=== PATIENT | male | born 1955 | race Hispanic/Latino ===

== ENCOUNTER 2023-02-08 10:56 | Emergency (ER) | payer SELFPAY ==
[2023-02-08 11:37] LABS: Absolute Lymphocytes (CBC) 1.2 K/uL (0.7-4.9); Hematocrit 43.7 % (39.6-49.0); Lymphocytes % 15.1 % (15.3-44.8); MCV 82.5 fL (80-100); MPV 9.2 fL (7.6-11.3); Platelets 148 thou/uL (152-406)
[2023-02-08 11:59] LABS: Albumin 3.8 g/dL (3.4-5.0); Bilirubin Direct 0.1 mg/dL (0-0.2); Bilirubin Indirect, Calculated 0.4 mg/dL (0.2-0.8); Bilirubin Total 0.5 mg/dL (0.2-1.0); Magnesium 2.2 mg/dL (1.6-2.4); Potassium 3.1 mEq/L (3.5-5.1); Protein, Total 7.5 g/dL (6.4-8.2); Troponin High Sensitivity 8.7 pg/mL (<58.9)
--- NOTE | 2023-02-08 12:38 | RAD REPORT ---
EXAM DESCRIPTION: CT - Angio Aorta For Dissection - 02/08/2023 12:24 pm CLINICAL HISTORY: DISSECTION COMPARISON: No comparisons TECHNIQUE: Thin axial CT images of the chest, abdomen, and pelvis were obtained during administratio n of 100mL Isovue 370 IV contrast. Sagittal and coronal reconstructions as well as maximal intensity projection reconstruction were generated and reviewed per an aortic angiography protocol. All CT scans are performed using dose optimization technique as appropriate and may include automated exposure control or mA/KV adjustment according to patient size. FINDINGS: Aorta is normal in diameter with no dissection or other acute aortic findings. Reconstruct ion images show no significant findings. Pulmonary arteries are normal as well. No mass or infiltrate in the lung parenchyma. No pleural thickening, pleural effusion or pneumothorax . No abnormal mediastinal or hilar mass or lymphadenopathy seen. No chest wall mass or abnormal axillar y lymphadenopathy. Celiac, SMA and renal arteries show no suspicious findings. Diffuse hepatic parenchymal hypoattenuati on suggesting steatosis. Small bilateral inguinal hernias containing fat. Appendix is unremarkable. G allbladder is contracted limiting evaluation. Solid abdominal viscera and bowel show no other signifi cant findings. No mass or abnormal lymphadenopathy. Small sclerotic lesions within the pelvic bones, largest measuring up to 1 cm, favored to represent s mall bone islands or other benign entities. IMPRESSION: No acute abnormalities on CT angiogram of the aorta. No other acute findings on chest, abdomen and pelvis examination. Incidental findings as above.
[2023-02-08] MEDS ORDERED: NA CHLORIDE 0.9% 1,000 ML ONE (12:43)
[2023-02-08] MEDS ORDERED: POTASSIUM 25 MEQ EFFERV TAB ONE (12:43)
--- NOTE | 2023-02-08 13:27 | RAD REPORT ---
EXAM DESCRIPTION: Enrique Single View02/08/2023 1:01 pm CLINICAL HISTORY: Chest pain COMPARISON: none FINDINGS: The lungs appear clear of acute infiltrate. The heart is mildly enlarged IMPRESSION: No acute abnormalities displayed
--- NOTE | 2023-02-08 14:15 | ER ---
Nurse's Notes [facility] Name: Carlton Zuniga Age: 67 yrs Sex: Male : 1955 Arrival Date: 02/08/2023 Time: 10:56 Bed 21 Private MD: Diagnosis: Chest pain, unspecified Presentation: 02/08 11:11 Chief complaint: Patient states: symptoms have been going on for 3 weeks, more frequent ko1 this past week, has headache. Coronavirus screen: At this time, the client does not indicate any symptoms associated with coronavirus-19. Ebola Screen: No symptoms or risks identified at this time. Initial Sepsis Screen: Does the patient meet any 2 criteria? No. Patient's initial sepsis screen is negative. Does the patient have a suspected source of infection? No. Patient's initial sepsis screen is negative. Risk Assessment: Do you want to hurt yourself or someone else? Patient reports no desire to harm self or others. Onset of symptoms is unknown. 11:11 Method Of Arrival: Ambulatory ko1 11:11 Acuity: ROXIE 3 ko1 Triage Assessment: 11:14 Headache History: The patient has had previous headaches and this one is similar to ko1 previous episodes. General: Appears in no apparent distress. uncomfortable, Behavior is calm, cooperative, appropriate for age. Pain: Pain Pain began 3 months ago Also complains of no other associated symptoms. Neuro: Reports headache frontal area. Historical: - Allergies: 11:14 No Known Allergies; ko1 - PMHx: 11:14 Hypertensive disorder; ko1 - Immunization history:: Adult Immunizations up to date. - Social history:: Smoking status: Patient denies any tobacco usage or history of. Screenin:33 [facility] ED Fall Risk Assessment (Adult) History of falling in the last 3 months, cp4 including since admission No falls in past 3 months (0 pts) Confusion or Disorientation No (0 pts) Intoxicated or Sedated No (0 pts) Impaired Gait No (0 pts) Mobility Assist Device Used No (0 pt) Altered Elimination No (0 pt) Score/Fall Risk Level 0 - 2 = Low Risk Oriented to surroundings, Maintained a safe environment, Educated pt \T\ family on fall prevention, incl call for assistance when getting out of bed, Hourly rounding (assess needs \T\ fall precautionary measures) done. Abuse screen: Denies threats or abuse. Nutritional screening: No deficits noted. Tuberculosis screening: No symptoms or risk factors identified. Assessment: 13:29 Reassessment: Patient and/or family updated on plan of care and expected duration. Pain ll1 level reassessed. 14:33 Pain: Denies pain. cp4 Vital Signs: 11:11 BP 152 / 79; Pulse 57; Resp 18; Temp 97.6; Pulse Ox 99% on R/A; ko1 14:23 BP 173 / 96; Pulse 58; bc6 14:32 BP 149 / 85; Pulse 54; Resp 16; Pulse Ox 100% ; cp4 ED Course: 10:59 Patient arrived in ED. im 11:02 Pete Mcneal MD is Attending Physician. jessica 11:02 Frieda Smyth PA-C is PHCP. sb4 11:14 Triage completed. ko1 11:14 Arm band placed on right wrist. Patient placed in waiting room, Patient notified of ko1 wait time. 11:30 CBC with Diff Sent. bc6 11:31 D-Dimer Sent. bc6 11:31 Magnesium Sent. bc6 11:31 NT PRO-BNP Sent. bc6 11:31 PT-INR Sent. bc6 11:31 Troponin HS Sent. bc6 11:31 Inserted saline lock: 22 gauge in left hand, using aseptic technique. Blood collected. bc6 12:25 CT Aorta for Dissection In Process Unspecified. EDMS 12:30 Note: 22 diff. IV placed in right AC. eh4 13:03 XRAY Chest (1 view) In Process Unspecified. EDMS 14:14 Usman Castro MD is Referral Physician. sb4 14:21 Willow Montes De Oca is Primary Nurse. cp4 14:33 Placed in gown. Bed in low position. Call light in reach. Provided Education on: chest cp4 pain. 14:33 No provider procedures requiring assistance completed. intact, bleeding controlled, No cp4 redness/swelling at site. Pressure dressing applied. Administered Medications: 13:28 Drug: NS 0.9% IV 1000 ml IV at 1 bolus Per protocol; 1000 mL bolus Route: IV; Rate: 1 jl7 bolus; Site: left hand; 13:28 Drug: Potassium PO Effervescent Tablet 50 mEq PO once; dissolve in 4 ounces of water or jl7 juice Route: PO; Medication: 14:33 VIS not applicable for this client. cp4 Outcome: 14:14 Discharge ordered by . sb4 14:33 Discharged to home ambulatory, cp4 14:33 Condition: stable 14:33 Discharge instructions given to patient, Instructed on discharge instructions, follow up and referral plans. Demonstrated understanding of instructions, follow-up care, 14:35 Patient left the ED. cp4 Signatures: Dispatcher [employer] EDMS Pete Mcneal MD MD cha Leal, Jahala RN RN jl7 Mateus Beatty, RN RN ll1 Natividad Georges 4 Guerline Sullivan RN RN Frieda Peters, PA-C PA-C sb4 Louise Caballero 6 Nani Pryor Christina cp4 Corrections: (The following items were deleted from the chart) 11:31 11:30 BASIC METABOLIC PANEL+C.LAB.BRZ drawn and sent. 6 [facility]
--- NOTE | 2023-02-08 14:15 | EDPHYS ---
Physician Documentation [facility] Name: Carlton Zuniga Age: 67 yrs Sex: Male : 1955 Arrival Date: 02/08/2023 Time: 10:56 Bed 21 Private MD: ED Physician Pete Mcneal HPI: 02/08 15:07 This 67 yrs old Male presents to ER via Ambulatory with complaints of sb4 Headache, Arm Pain - left, Breathing Difficulty, Numbness Of Face. 15:07 Patient presents with multiple complaints. He states that he has had intermittent chest sb4 pain, headaches, numbness/tingling of his face for a few months now, but has been worse over the past week. He does have a history of hypertension and reports compliance with his medication. He states that he called his PCP regarding the symptoms yesterday and was told to come to the ED for evaluation. Historical: - Allergies: 11:14 No Known Allergies; ko1 - PMHx: 11:14 Hypertensive disorder; ko1 - Immunization history:: Adult Immunizations up to date. - Social history:: Smoking status: Patient denies any tobacco usage or history of. ROS: 15:07 Constitutional: Negative for fever, chills, and weight loss, sb4 15:07 Cardiovascular: Positive for chest pain, 15:07 Neuro: Positive for headache, tingling, 15:07 All other systems are negative, Exam: 15:07 Constitutional: This is a well developed, well nourished patient who is awake, alert, sb4 and in no acute distress. Head/Face: Normocephalic, atraumatic. Eyes: Extra-ocular motions intact. Periorbital areas with no swelling, redness, or edema. ENT: Mucous membranes moist. Cardiovascular: Regular rate and rhythm with a normal S1 and S2. Respiratory: Lungs have equal breath sounds bilaterally, clear to auscultation and percussion. No rales, rhonchi or wheezes noted. No increased work of breathing, no retractions or nasal flaring. Abdomen/GI: Soft, non-tender, no distension. Skin: Warm, dry with normal turgor. Normal color with no rashes, no lesions, and no evidence of cellulitis. MS/ Extremity: Pulses equal, no cyanosis. Neurovascular intact. Full, normal range of motion. Neuro: Awake and alert, GCS 15, oriented to person, place, time, and situation. Motor strength 5/5 in all extremities. Sensory grossly intact. Vital Signs: 11:11 BP 152 / 79; Pulse 57; Resp 18; Temp 97.6; Pulse Ox 99% on R/A; ko1 14:23 BP 173 / 96; Pulse 58; bc6 14:32 BP 149 / 85; Pulse 54; Resp 16; Pulse Ox 100% ; cp4 MDM: 11:02 Patient medically screened. jessica 14:16 Scoring Tools HEART Score: History: ECG: Age: Risk Factors: 1 or 2 risk factors (1), sb4 Troponin: Total Score = 3. 15:07 Differential diagnosis: hypertensive headache, migraine, Acute FL, unstable angina, sb4 stable angina. Data reviewed: vital signs, nurses notes, lab test result(s), EKG, radiologic studies, and as a result, I will discharge patient. Consideration of Admission/Observation Escalation of care including admission/observation considered. Care significantly affected by the following chronic conditions: Hypertension. Counseling: I had a detailed discussion with the patient and/or guardian regarding the historical points, exam findings, and any diagnostic results supporting the discharge/admit diagnosis, the presence of at least one elevated blood pressure reading (>120/80) during this emergency department visit, lab results, radiology results, the need for outpatient follow up, a duty officer, to return to the emergency department if symptoms worsen or persist or if there are any questions or concerns that arise at home. 02/08 11:20 Order name: Basic Metabolic Panel; Complete Time: 12:00 sb4 02/08 11:20 Order name: CBC with Diff; Complete Time: 11:41 sb4 02/08 11:20 Order name: D-Dimer; Complete Time: 11:44 sb4 02/08 11:20 Order name: LFT's; Complete Time: 12:00 sb4 02/08 11:20 Order name: Magnesium; Complete Time: 12:00 sb4 02/08 11:20 Order name: NT PRO-BNP; Complete Time: 12:00 sb4 02/08 11:20 Order name: PT-INR; Complete Time: 11:44 sb4 02/08 11:20 Order name: Troponin HS; Complete Time: 12:00 sb4 02/08 13:14 Order name: Troponin High Sensitivity; Complete Time: 14:03 sb4 02/08 11:20 Order name: XRAY Chest (1 view); Complete Time: 13:28 sb4 02/08 12:01 Order name: CT Aorta for Dissection; Complete Time: 12:39 sb4 02/08 11:20 Order name: EKG; Complete Time: 11:21 sb4 02/08 11:20 Order name: EKG - Nurse/Tech; Complete Time: 11:39 sb4 02/08 11:20 Order name: IV Saline Lock; Complete Time: 11:30 sb4 02/08 11:20 Order name: Labs collected and sent; Complete Time: 11:30 sb4 02/08 11:20 Order name: O2 Per Protocol; Complete Time: 12:27 sb4 02/08 11:20 Order name: O2 Sat Monitoring; Complete Time: 12:27 sb4 02/08 12:04 Order name: Misc. Order: repeat trop at 1330; Complete Time: 13:28 sb4 EC:40 Rate is 55 beats/min. Rhythm is regular, Normal Sinus Rhythm with 1st degree heart sb4 block. MO interval is prolonged at 220 msec. QRS interval is normal at 110 msec. QT interval is normal at 405 msec. No Q waves. T waves are Normal. No ST changes noted. Clinical impression: 1st degree heart block and No evidence of ischemia. Interpreted by me. Reviewed by me. Administered Medications: 13:28 Drug: NS 0.9% IV 1000 ml IV at 1 bolus Per protocol; 1000 mL bolus Route: IV; Rate: 1 jl7 bolus; Site: left hand; 13:28 Drug: Potassium PO Effervescent Tablet 50 mEq PO once; dissolve in 4 ounces of water or jl7 juice Route: PO; Disposition Summary: 02/08/23 14:14 Discharge Ordered Notes: Location: Home sb4 Problem: an ongoing problem sb4 Symptoms: are unchanged sb4 Condition: Stable sb4 Diagnosis - Chest pain, unspecified sb4 Followup: sb4 - With: Usman Castro MD - When: 2 - 3 days - Reason: Recheck today's complaints, Re-evaluation by your physician Discharge Instructions: - Discharge Summary Sheet sb4 - Nonspecific Chest Pain, Adult, [id number] sb4 - Hypokalemia sb4 Forms: - Medication Reconciliation Form sb4 - Thank You Letter sb4 - Antibiotic Education sb4 - Prescription Opioid Use sb4 - Patient Portal Instructions sb4 - Leadership Thank You Letter sb4 Signatures: Dispatcher [employer] EDPete Bah MD MD cha Leal, Jahala, RN RN jl7 Guerline Sullivan, RN RN ko1 Frieda Smyth, PAAdalid PAAdaldi sb4 Corrections: (The following items were deleted from the chart) 11:31 11:21 BASIC METABOLIC PANEL+C.LAB.BRZ ordered. EDWY EDWY
[2023-02-08 14:53] VITALS: TEMP 97.6
[2023-02-08 14:57] VITALS: BP 149/85; O2SAT 100
--- NOTE | 2023-02-09 14:50 | EKG ---
Test Date: 2023-02-08 Test Time: 11:35:31 Manager Planning: ANAYA MEASUREMENT RESULTS: Intervals: Rate: 55 PA: 220 QRSD: 110 QT: 424 QTc: 405 [place]: P: 66 PA: 220 QRS: 69 T: 7 INTERPRETIVE STATEMENTS: Sinus bradycardia with 1st degree AV block Otherwise normal ECG No previous ECG available for comparison Electronically Signed On 02-09-23 14:46:05 DIGITAL RECRUITER by Usman Castro
== END 2023-02-08 14:35 | disposition home or self-care (01) ==
LOC: ER 10:56
DX: R07.89 Other chest pain (principal); R51.9 Headache, unspecified; I10 Essential (primary) hypertension
CPT/HCPCS: 36415; 71045; 71275; 74175; 80048; 80076; 83735; 83880; 84484; 85025; 85379; 85610; 93005; 99284; J7030; Q9967